=== PATIENT | male | born 1950 | race Caucasian/White ===

== ENCOUNTER 2018-03-15 07:01 | Day surgery (SDC) | payer OTHER ==
[~2018-03-15 07:01] MED LIST: Lactated Ringers 1,000 ML IV SCH; Sodium Chloride 0.9% 10 ML Syringe FLUSH PRN; Sodium Chloride 0.9% 2.5 ML Syringe FLUSH PRN
[2018-03-15] MEDS ORDERED: fentaNYL 100 MCG/2 ML SDV ONE (07:45)
[2018-03-15] MEDS ORDERED: Lidocaine 2% 5 ML SDV ONE (07:45)
[2018-03-15] MEDS ORDERED: Propofol 200 MG/20 ML SDV ONE (07:45)
--- NOTE | 2018-03-15 08:25 | PCM.PREANE ---
Preanesthetic Assessment - Anesthesia/Transfusion/Family Hx Anesthesia History: Prior Anesthesia Without Reaction Transfusion History: No Prior Transfusion(s) - Review of Systems General: No Symptoms Pulmonary: Other (POST NASAL DRIP FROM ALLERGIES, AND COUGHING. ) Cardiovascular: No Symptoms Gastrointestinal: No Symptoms Neurological: No Symptoms Other: Reports: None - Physical Assessment NPO Status Date: 03/15/18 NPO Status Time: 06:00 O2 Sat by Pulse Oximetry: 95 Respiratory Rate: 18 Vital Signs: Last Vital Signs Temp 36.4 C 03/15/18 07:15 Pulse 94 03/15/18 07:15 Resp 18 03/15/18 07:15 BP 175/58 H 03/15/18 07:15 Pulse Ox 95 03/15/18 07:15 Height: 1.88 m Weight: 124.738 kg ASA Class: 2 Mental Status: Alert & Oriented x3 Airway Class: Mallampati = 3 (SHORT THICK NECK) Dentition: Reports: Normal Dentition Thyro-Mental Finger Breadths: 3 (LARGE TONGUE) Mouth Opening Finger Breadths: 3 ROM/Head Extension: Full Lungs: Clear to Auscultation, Normal Respiratory Effort Cardiovascular: Regular Rate, Regular Rhythm - Allergies Allergies/Adverse Reactions: Allergies Allergy/AdvReac Type Severity Reaction Status Date / Time pollen extracts Allergy sinus Verified 03/08/18 12:09 congestion - Acknowledgements Anesthesia Type Planned: MAC Pt an Appropriate Candidate for the Planned Anesthesia: Yes Alternatives and Risks of Anesthesia Discussed w Pt/Guardian: Yes Pt/Guardian Understands and Agrees with Anesthesia Plan: Yes Additional Comments: The patient understands and accepts the anesthetic risks and benefits of anesthesia and has consented. All questions answered. PreAnesthesia Questionnaire HEENT History: Reports: Allergic Rhinitis Cardiovascular History: Reports: High Cholesterol, Hypertension Other Cardiovascular History: hx rheumatic fever, hx murmur Gastrointestinal History: Reports: Other (See Below) Other Gastrointestinal History: occasional heartburn Musculoskeletal History: Reports: Osteoarthritis Endocrine/Metabolic History: Reports: Diabetes, Type II, Obesity/BMI 30+ - Past Surgical History Head Surgeries/Procedures: Reports: None HEENT Surgical History: Reports: Tonsillectomy GI Surgical History: Reports: Colonoscopy - SUBSTANCE USE Smoking Status *Q: Former Smoker Recreational Drug Use History: No - HOME MEDS Home Medications: Home Meds Ascorbic Acid [Vitamin C] 250 mg PO DAILY 03/08/18 [History] Aspirin [Adult Aspirin] 81 mg PO DAILY 03/08/18 [History] Celecoxib [CeleBREX] 200 mg PO DAILY PRN 03/08/18 [History] Cholecalciferol (Vitamin D3) [Vitamin D3] 1,000 units PO DAILY 03/08/18 [History ] Cyanocobalamin (Vitamin B12) [Vitamin B12] 100 mcg PO DAILY 03/08/18 [History] Docosahexanoic Acid [DHA] 200 mg PO DAILY 03/08/18 [History] Doxycycline Hyclate 100 mg PO ASDIRECTED PRN 03/08/18 [History] Empagliflozin/Linagliptin [Glyxambi 25 mg-5 mg Tablet] 1 tab PO DAILY 03/08/18 [ History] Glimepiride 2 tab PO DAILY 03/08/18 [History] Lisinopril 5 mg PO DAILY 03/08/18 [History] Viagra 100 mg PO ASDIRECTED PRN 03/08/18 [History] Zolpidem Tartrate [Zolpidem Tartrate ER] 1 tab PO ASDIRECTED PRN 03/08/18 [ History] atorvaSTATin Calcium [Atorvastatin Calcium] 40 mg PO BEDTIME 03/08/18 [History] metFORMIN HCl [Metformin HCl ER] 4 tab PO ASDIRECTED 03/08/18 [History] - CURRENT (IN HOUSE) MEDS Current Meds: Current Medications Lactated Ringer's (Ringers, Lactated) 1,000 mls @ 125 mls/hr IV ASDIRECTED MAXIMILIAN Last Admin: 03/15/18 07:20 Dose: 125 mls/hr Sodium Chloride (Saline Flush) 10 ml FLUSH ASDIRECTED PRN PRN Reason: Keep Vein Open Sodium Chloride (Saline Flush) 2.5 ml FLUSH ASDIRECTED PRN PRN Reason: Keep Vein Open Sodium Chloride (Saline Flush) 10 ml FLUSH ASDIRECTED PRN PRN Reason: Keep Vein Open Sodium Chloride (Saline Flush) 2.5 ml FLUSH ASDIRECTED PRN PRN Reason: Keep Vein Open Discontinued Medications Fentanyl (Sublimaze) Confirm Administered Dose 100 mcg .ROUTE .STK-MED ONE Stop: 03/15/18 07:46 Lidocaine (Xylocaine-Mpf 2%) Confirm Administered Dose 5 ml .ROUTE .STK-MED ONE Stop: 03/15/18 07:46 Propofol (Diprivan 20 Ml) Confirm Administered Dose 400 mg .ROUTE .[facility] ONE Stop: 03/15/18 07:46
[2018-03-15] MEDS ORDERED: fentaNYL 100 MCG/2 ML SDV IVPUSH PRN (08:27)
[2018-03-15] MEDS ORDERED: Ondansetron 4 MG/2 ML SDV IVPUSH PRN (08:27)
--- NOTE | 2018-03-15 10:14 | PCM.POSTAN ---
POST ANESTHESIA ASSESSMENT - MENTAL STATUS Mental Status: Alert, Oriented - RESPIRATORY Respiratory Status: Respiratory Rate WNL - CARDIOVASCULAR CV Status: Pulse Rate WNL - GASTROINTESTINAL GI Status: No Symptoms - POST OP HYDRATION Hydration Status: Adequate & Stable - OBSERVATIONS Free Text/Narrative:: The patient tolerated the procedure well. There were no apparent anesthetic complications at this time. Discharge to phase 2.
--- NOTE | 2018-03-15 10:29 | PCM48HPAN ---
Post Anesthesia Note - EVALUATION WITHIN 48HRS OF ANESTHETIC Vital Signs in Normal Range: Yes Patient Participated in Evaluation: Yes Respiratory Function Stable: Yes Airway Patent: Yes Cardiovascular Function Stable: Yes Hydration Status Stable: Yes Pain Control Satisfactory: Yes Nausea and Vomiting Control Satisfactory: Yes Mental Status Recovered: Yes Resp Rate: 16 - COMMENTS/OBSERVATIONS Free Text/Narrative:: The patient has no complaints at this time. Discharge home per criteria.
--- NOTE | 2018-03-15 11:06 | PCM.OPNOTE ---
- General Post-Op/Procedure Note Date of Surgery/Procedure: 03/15/18 Operative Procedure(s): Diagnostic EGD and colonoscopy Findings: Esophagitis, duodenitis, gastritis, grade 3 hemorrhoids, diverticulosis, stomach ulcer, gastric ulcer Pre Op Diagnosis: Dysphagia and history of colon polyps Post-Op Diagnosis: Esophagitis, duodenitis, gastritis, grade 3 hemorrhoids, diverticulosis, stomach ulcer, gastric ulcer [place]est[place] [facility] [place] Surgeon: Enedina Brownlee Condition: Good Free Text/Narrative:: Intake & Output 03/14/18 03/15/18 03/15/18 22:59 06:59 14:59 Intake Total 1300 Balance 1300
--- NOTE | 2018-03-15 12:56 | OR ---
SURGEON: BRINDA LESLIE MD DATE OF PROCEDURE: 03/15/2018 PREOPERATIVE DIAGNOSES: 1. Dysphagia. 2. History of colon polyps. POSTOPERATIVE DIAGNOSES: 1. Esophagitis. 2. Gastritis and duodenitis. 3. Duodenal ulcer. 4. Stomach ulcer. 5. Diverticulosis. 6. Grade 3 hemorrhoids. PROCEDURES PERFORMED: Diagnostic esophagogastroduodenoscopy and screening colonoscopy. ANESTHESIA: MAC. INSTRUMENT USED: Olympus endoscope and colonoscope. EXTENT OF EXAM: Second portion of duodenum, to the cecum. PREPARATION: Good. LIMITATIONS: None. INDICATION FOR EXAMINATION: The patient is a 67-year-old male who presents with dysphagia as well as history of colon polyps. The decision was made to proceed with an EGD and colonoscopy. I explained the procedures, expected perioperative course, and risks including bleeding, infection, or damage to surrounding structures in including perforation. The patient verbalized understanding and wishes to proceed. PROCEDURE IN DETAIL: The patient was brought into the endoscopy suite and placed in the left lateral decubitus position. A time-out was completed verifying the patient's name, age, date of , allergies, and procedure to be performed. Monitored anesthesia care was induced. A bite block was placed in the patient's mouth. Continuous oxygen was provided via nasal cannula throughout the procedure. After adequate sedation was achieved, a well lubricated endoscope was placed in the patient's mouth and advanced under direct visualization to the second portion of duodenum. A photograph was taken. The scope was then straightened out and fully withdrawn while examining the color, texture, anatomy, and integrity of mucosa of the upper GI tract. The patient had scattered superficial ulcerations throughout the first and second portions of the duodenum. Photographs of this were taken. A photograph was taken at the juncture of the first and second portion of the duodenum and sent to Pathology. The scope was then brought into the stomach and a photograph was taken of the pylorus as well as the GE junction, they appeared anatomically normal. There was scattered superficial ulceration next to the pylorus as well as in the antrum. Biopsies were taken of the gastric antrum, body, and fundus and sent for histologic review and H. pylori testing. The scope was then brought into the distal esophagus. There were signs of mild esophagitis. A photograph was taken. Two biopsies were taken approximately 1 cm up from the GE junction. The remainder of the esophageal mucosa was normal. The scope was removed and this portion of procedure was terminated. A digital rectal exam was then performed, this revealed grade 3 hemorrhoids. Please put that in the postoperative diagnosis up above. A well lubricated colonoscope was inserted in the rectum and advanced under direct visualization to the cecum. The cecum was identified by both visual and anatomic landmarks. A photograph was taken of the cecal cap; however, I was unable to retroflex the scope within the cecum. The scope was then fully withdrawn while examining the color, texture, anatomy, and integrity of the mucosa from the cecum to the anal canal. The patient was found to have scattered diverticulosis throughout the colon. The scope was then brought into the rectum and retroflexed to allow visualization of the anal canal opening. This appeared normal. This again confirmed enlarged hemorrhoidal tissue. The scope was then straightened out and fully withdrawn. The cecum to anus time was 10 minutes. The patient tolerated the procedure well and was taken to PACU in stable condition. ENDOSCOPIC DIAGNOSES: 1. Esophagitis. 2. Gastritis and duodenitis. 3. Duodenal ulcer. 4. Stomach ulcer. 5. Diverticulosis. 6. Grade 3 hemorrhoids. RECOMMENDATIONS: We will make sure that the patient is on a proton pump inhibitor and start Carafate. I will follow up with him in clinic in 2 weeks to discuss our findings and the next steps in treatment. SERENITY YUEN /[id number]
== END 2018-03-15 10:39 | disposition home or self-care (01) ==
LOC: MW.SDS 07:01
PROVIDERS: ATTEND Surgery
DX: R13.10 Dysphagia, unspecified (principal); K26.9 Duodenal ulcer, unspecified as acute or chronic, without hemorrhage or perforation; K25.9 Gastric ulcer, unspecified as acute or chronic, without hemorrhage or perforation; K29.70 Gastritis, unspecified, without bleeding; K29.80 Duodenitis without bleeding; Z12.11 Encounter for screening for malignant neoplasm of colon; K57.30 Diverticulosis of large intestine without perforation or abscess without bleeding; K64.2 Third degree hemorrhoids; I10 Essential (primary) hypertension; E11.9 Type 2 diabetes mellitus without complications; E66.9 Obesity, unspecified; Z68.35 Body mass index [BMI] 35.0-35.9, adult; E78.5 Hyperlipidemia, unspecified; M19.90 Unspecified osteoarthritis, unspecified site; Z87.891 Personal history of nicotine dependence; Z86.010 Personal history of colon polyps; Z79.82 Long term (current) use of aspirin; Z79.84 Long term (current) use of oral hypoglycemic drugs; Z79.899 Other long term (current) drug therapy; Z91.048 Other nonmedicinal substance allergy status
CPT/HCPCS: 43239; 45378; 82962; J2704; J3010; J7120

== ENCOUNTER 2020-04-11 08:04 | Emergency (ER) | payer BC, OTHER ==
--- NOTE | 2020-04-11 08:25 | EDM.PDOC ---
ED HPI GENERAL MEDICAL PROBLEM - General Chief Complaint: ENT Problem Stated Complaint: ear ache/ sore throat Time Seen by Provider: 04/11/20 08:14 Source of Information: Reports: Patient History Limitations: Reports: No Limitations - History of Present Illness INITIAL COMMENTS - FREE TEXT/NARRATIVE: 69-year-old male with history of rheumatic fever presents with sore throat for 2 days, associated with bilateral ear pain. Pain is localized to the back of his throat, nonradiating, moderate, exacerbated with swallowing, no alleviating factors, constant, sharp. Patient denies fever, chills, headache, chest pain, shortness of breath, abdominal pain, focal numbness or weakness. ROS: A 10-point review of systems, other than pertinent positives and negatives as stated per HPI, is otherwise negative Past medical history: No additional pertinent history Past Surgical history: No additional pertinent history Social history: No additional pertinent history Family history: No additional pertinent history PHYSICAL EXAM General: AOx4, GCS = 15, No distress HEENT: Right TM occluded by cerumen, left TM no erythema or bulging. Dry mucous membrane, erythema noted to posterior oropharynx, no exudates. Positive cervical lymphadenopathy. Neck: supple, no meningismus, no Kernig or Brudzinski Cardiac: S1S2 RRR Respiratory: CTAB, no crackles or rales, no wheezing Abdomen: Soft, nontender, no rebound or guarding, nondistended, no pulsatile mass. Back: nontender Musculoskeletal: NVI distally, no deformity Neuro: No focal deficits, CN 2 - 12 WNL. Ear Pain Score (Numeric/FACES): 5 - Related Data Allergies Allergy/AdvReac Type Severity Reaction Status Date / Time pollen extracts Allergy sinus Verified 04/11/20 08:11 congestion Home Meds: Home Meds Ascorbic Acid [Vitamin C] 250 mg PO DAILY 03/08/18 [History] Aspirin [Adult Aspirin] 81 mg PO DAILY 03/08/18 [History] Celecoxib [CeleBREX] 200 mg PO DAILY PRN 03/08/18 [History] Cholecalciferol (Vitamin D3) [Vitamin D3] 1,000 units PO DAILY 03/08/18 [History] Cyanocobalamin (Vitamin B12) [Vitamin B12] 100 mcg PO DAILY 03/08/18 [History] Docosahexaenoic Acid [DHA] 200 mg PO DAILY 03/08/18 [History] Doxycycline Hyclate 100 mg PO ASDIRECTED PRN 03/08/18 [History] Empagliflozin/Linagliptin [Glyxambi 25 mg-5 mg Tablet] 1 tab PO DAILY 03/08/18 [History] Glimepiride 2 tab PO DAILY 03/08/18 [History] Lisinopril 5 mg PO DAILY 03/08/18 [History] Viagra 100 mg PO ASDIRECTED PRN 03/08/18 [History] Zolpidem Tartrate [Zolpidem Tartrate ER] 1 tab PO ASDIRECTED PRN 03/08/18 [History] atorvaSTATin Calcium [Atorvastatin Calcium] 40 mg PO BEDTIME 03/08/18 [History] metFORMIN HCl [Metformin HCl ER] 4 tab PO ASDIRECTED 03/08/18 [History] Pantoprazole [ProTONIX] 40 mg PO DAILY #30 tab.cr 03/15/18 [Rx] Sucralfate [Carafate] 1 gm PO QIDACANDBED #56 tablet 03/15/18 [Rx] Naproxen [Naprosyn] 500 mg PO Q12HR #30 tab 04/11/20 [Rx] Past Medical History HEENT History: Reports: Allergic Rhinitis Cardiovascular History: Reports: High Cholesterol, Hypertension Other Cardiovascular History: hx rheumatic fever, hx murmur Respiratory History: Reports: None Gastrointestinal History: Reports: Other (See Below) Other Gastrointestinal History: occasional heartburn Musculoskeletal History: Reports: Osteoarthritis Neurological History: Reports: None Psychiatric History: Reports: None Endocrine/Metabolic History: Reports: Diabetes, Type II, Obesity/BMI 30+ - Infectious Disease History Infectious Disease History: Reports: Chicken Pox, Measles, Mumps - Past Surgical History Head Surgeries/Procedures: Reports: None HEENT Surgical History: Reports: Tonsillectomy GI Surgical History: Reports: Colonoscopy Social & Family History - Family History Family Medical History: Unobtainable - Tobacco Use Tobacco Use Status *Q: Never Tobacco User - Caffeine Use Caffeine Use: Reports: Coffee - Recreational Drug Use Recreational Drug Use: No ED ROS GENERAL - Review of Systems Review Of Systems: See Below (see dictation) ED EXAM, GENERAL - Physical Exam Exam: See Below (see dictation) Course - Vital Signs Last Recorded V/S: Last Vital Signs Temp 97.2 F 04/11/20 08:12 Pulse 100 04/11/20 08:12 Resp 16 04/11/20 08:12 BP 147/83 H 04/11/20 08:12 Pulse Ox 94 L 04/11/20 08:12 - Orders/Labs/Meds Orders: Active Orders 24 hr Category Date Time Status CULTURE THROAT [RM] Stat Lab 04/11/20 08:35 Received Naproxen [Naprosyn] Med 04/11/20 09:23 Once 500 mg PO ONETIME ONE Penicillin G Benzathine [Bicillin L-A] Med 04/11/20 09:23 Once 1.2 millunits IM ONETIME ONE Medication Orders Naproxen (Naprosyn) 500 mg PO ONETIME ONE Stop: 04/11/20 09:24 Penicillin G Benzathine (Bicillin L-A) 1.2 millunits IM ONETIME ONE Stop: 04/11/20 09:24 Labs: Laboratory Tests 04/11/20 Range/Units 08:25 Group A Strep (PCR) NOT DETECTED (NOT DETECT) Meds: Medications Generic Name Dose Route Start Last Admin Trade Name Freq PRN Reason Stop Dose Admin Naproxen 500 mg 04/11/20 09:23 Naprosyn PO 04/11/20 09:24 ONETIME ONE Penicillin G Benzathine 1.2 millunits 04/11/20 09:23 Bicillin L-A IM 04/11/20 09:24 ONETIME ONE - Re-Assessments/Exams Free Text/Narrative Re-Assessment/Exam: 04/11/20 08:24 Patient told his PCR for strep today was negative, he is demanding Bicillin antibiotic given his history of rheumatic fever. He is currently stable for discharge. I performed a repeat exam and did not appreciate new abnormal findings. Patient exhibits normal vital signs and has a normal gait on road test. I advised the patient to return to the ER for reevaluation if symptoms worsened, including fever, worsening pain, or any other worrisome symptoms. I instructed the patient to follow up with their PCP within 2-3 days. MEDICAL DECISION MAKING: I reviewed the patients past medical records, lab and radiographic findings. I discussed the case with the patient. My differential diagnosis included: Strep pharyngitis, viral pharyngitis. Patient's PCR was negative for strep A, he is demanding to have antibiotic injection given his history of rheumatic fever. I instructed him that this is not indicated and may lead to antibiotic resistance, he does not care and he is specifically demanding to have antibiotic injection. Departure - Departure Time of Disposition: 09:25 Disposition: Home, Self-Care 01 Condition: Good Clinical Impression: Pharyngitis - Discharge Information *PRESCRIPTION DRUG MONITORING PROGRAM REVIEWED*: Not Applicable *COPY OF PRESCRIPTION DRUG MONITORING REPORT IN PATIENT EVELYN: Not Applicable Prescriptions: Naproxen [Naprosyn] 500 mg PO Q12HR #30 tab Instructions: Pharyngitis Referrals: Betsy Pradhan [facility] [Primary Care Provider] - Forms: ED Department Discharge Additional Instructions: The need for follow-up, as well as the timing and circumstances, are variable depending upon the specifics of your emergency department visit. If you don't have a primary care physician on staff, we will provide you with a referral. We always advise you to contact your personal physician following an emergency department visit to inform them of the circumstance of the visit and for follow-up with them and/or the need for any referrals to a consulting specialist. The emergency department will also refer you to a specialist when appropriate. This referral assures that you have the opportunity for follow-up care with a specialist. All of these measure are taken in an effort to provide you with optimal care, which includes your follow-up. Under all circumstances we always encourage you to contact your private physician who remains a resource for coordinating your care. When calling for follow-up care, please make the office aware that this follow-up is from your recent emergency room visit. If for any reason you are refused follow-up, please contact the [facility] Emergency Department at and asked to speak to the emergency department charge nurse. If you do not have a primary care doctor, please follow up with the [facility] within 3-5 days. Joey Frost [facility] [address] [address] [facility] [address] [place] [id number] Sepsis Event Note (ED) - Evaluation Sepsis Screening Result: No Definite Risk - Focused Exam Vital Signs: Vital Signs Temp Pulse Resp BP Pulse Ox 04/11/20 08:12 97.2 F 100 16 147/83 H 94 L - My Orders Last 24 Hours: My Active Orders 04/11/20 08:35 CULTURE THROAT [RM] Stat 04/11/20 09:23 Naproxen [Naprosyn] 500 mg PO ONETIME ONE Penicillin G Benzathine [Bicillin L-A] 1.2 millunits IM ONETIME ONE - Assessment/Plan Last 24 Hours: My Active Orders 04/11/20 08:35 CULTURE THROAT [RM] Stat 04/11/20 09:23 Naproxen [Naprosyn] 500 mg PO ONETIME ONE Penicillin G Benzathine [Bicillin L-A] 1.2 millunits IM ONETIME ONE
[2020-04-11] MEDS ORDERED: Penicillin G Benzathine 1,200,000 Units/2 ML Syringe IM ONE (09:23)
[2020-04-11] MEDS ORDERED: Naproxen 500 MG Tab PO ONE (09:23)
== END 2020-04-11 09:39 | disposition home or self-care (01) ==
LOC: MW.ED 08:04
DX: J02.9 Acute pharyngitis, unspecified (principal); E78.00 Pure hypercholesterolemia, unspecified; I10 Essential (primary) hypertension; E11.9 Type 2 diabetes mellitus without complications; M19.90 Unspecified osteoarthritis, unspecified site; E66.9 Obesity, unspecified; Z68.33 Body mass index [BMI] 33.0-33.9, adult; Z91.048 Other nonmedicinal substance allergy status; Z79.82 Long term (current) use of aspirin; Z79.84 Long term (current) use of oral hypoglycemic drugs; Z79.899 Other long term (current) drug therapy
CPT/HCPCS: 87651; 96372; 99283; A9270; J0561; 99282

== ENCOUNTER 2024-02-15 07:44 | Day surgery (SDC) | payer BC ==
[~2024-02-15 07:44] MED LIST changes: -Lactated Ringers 1,000 ML IV SCH; +Sodium Chloride 0.9% 20 ML SDV IV PRN
[2024-02-15] MEDS: Lactated Ringers 1,000 ML IV SCH (08:35)
[2024-02-15] MEDS ORDERED: Propofol 200 MG/20 ML SDV ONE (09:06)
[2024-02-15] MEDS ORDERED: Lidocaine 2% 5 ML SDV ONE (09:06)
== END 2024-02-15 10:54 | disposition home or self-care (01) ==
LOC: MW.SDS 07:44
PROVIDERS: ATTEND Surgery
DX: Z12.11 Encounter for screening for malignant neoplasm of colon (principal); K57.30 Diverticulosis of large intestine without perforation or abscess without bleeding; Z86.0100 Personal history of colon polyps, unspecified; I10 Essential (primary) hypertension; E11.9 Type 2 diabetes mellitus without complications; K21.9 Gastro-esophageal reflux disease without esophagitis; E78.5 Hyperlipidemia, unspecified; Z79.82 Long term (current) use of aspirin; Z79.85 Long-term (current) use of injectable non-insulin antidiabetic drugs; Z79.84 Long term (current) use of oral hypoglycemic drugs; Z79.899 Other long term (current) drug therapy; Z91.048 Other nonmedicinal substance allergy status; Z87.891 Personal history of nicotine dependence
CPT/HCPCS: 45378; J2704; J7120; J3490